=== PATIENT | male | born 1995 | race Hispanic/Latino ===

== ENCOUNTER 2019-02-02 13:24 | Emergency (ER) | payer OTHER, SELFPAY ==
[2019-02-02] MEDS ORDERED: HYDROCODONE/APAP 10/325 TAB ONE (13:48)
[2019-02-02] MEDS ORDERED: KETOROLAC 30 MG/ML INJ ONE (13:48)
--- NOTE | 2019-02-02 13:59 | EDPHYS ---
Physician Documentation [facility] Name: Joss Shearer Jr Age: 23 yrs Sex: Male : 1995 Arrival Date: 02/02/2019 Time: 13:27 Bed 14 Private MD: ED Physician Derek Appiah HPI: 02/02 14:04 This 23 yrs old Male presents to ER via Ambulatory with complaints of Back kb Pain. 14:04 The patient presents with pain that is acute, with no known mechanism of injury. The kb symptoms are located in the right low back. Onset: The symptoms/episode began/occurred 2 week(s) ago. The pain radiates to the right leg. Associated signs and symptoms: The patient has no apparent associated signs or symptoms. The problem was sustained without known cause. Modifying factors: The patient symptoms are alleviated by nothing, the patient symptoms are aggravated by nothing. Severity of symptoms: At their worst the symptoms were moderate, in the emergency department the symptoms are unchanged. The patient has not experienced similar symptoms in the past. The patient has not recently seen a physician. Historical: - Allergies: 13:32 No Known Drug Allergies; hb - Home Meds: 13:32 None [Active]; hb - PMHx: 13:32 Diabetes - NIDDM; hb - PSHx: 13:32 lump in chest removed; left knee repair; right hand repair; hb - Immunization history:: Adult Immunizations up to date. - Social history:: Smoking status: Patient/guardian denies using tobacco. - Ebola Screening: : No symptoms or risks identified at this time. ROS: 14:03 Constitutional: Negative for fever, chills, and weight loss, Neck: Negative for injury, kb pain, and swelling, Cardiovascular: Negative for chest pain, palpitations, and edema, Respiratory: Negative for shortness of breath, cough, wheezing, and pleuritic chest pain, Abdomen/GI: Negative for abdominal pain, nausea, vomiting, diarrhea, and constipation, : Negative for injury, bleeding, discharge, and swelling, MS/Extremity: Negative for injury and deformity, Skin: Negative for injury, rash, and discoloration, Neuro: Negative for headache, weakness, numbness, tingling, and seizure. 14:03 Back: Positive for pain at rest, pain with movement, radiated pain, of the right low back. Exam: 14:02 Constitutional: This is a well developed, well nourished patient who is awake, alert, kb and in no acute distress. Head/Face: Normocephalic, atraumatic. Neck: Trachea midline, no thyromegaly or masses palpated, and no cervical lymphadenopathy. Supple, full range of motion without nuchal rigidity, or vertebral point tenderness. No Meningismus. Chest/axilla: Normal chest wall appearance and motion. Nontender with no deformity. No lesions are appreciated. Cardiovascular: Regular rate and rhythm with a normal S1 and S2. No gallops, murmurs, or rubs. Normal PMI, no JVD. No pulse deficits. Respiratory: Lungs have equal breath sounds bilaterally, clear to auscultation and percussion. No rales, rhonchi or wheezes noted. No increased work of breathing, no retractions or nasal flaring. Abdomen/GI: Soft, non-tender, with normal bowel sounds. No distension or tympany. No guarding or rebound. No evidence of tenderness throughout. Back: No spinal tenderness. No costovertebral tenderness. Full range of motion. Skin: Warm, dry with normal turgor. Normal color with no rashes, no lesions, and no evidence of cellulitis. MS/ Extremity: Pulses equal, no cyanosis. Neurovascular intact. Full, normal range of motion. Neuro: Awake and alert, GCS 15, oriented to person, place, time, and situation. Cranial nerves II-XII grossly intact. Motor strength 5/5 in all extremities. Sensory grossly intact. Cerebellar exam normal. Normal gait. Vital Signs: 13:30 BP 178 / 99; Pulse 100; Resp 20; Temp 97.5; Pulse Ox 100% on R/A; Weight 235.87 kg; hb Height 6 ft. 7 in. (200.66 cm); Pain 7/10; 14:10 Weight 246.07 kg (M); hb 14:10 Body Mass Index 61.11 (246.07 kg, 200.66 cm) hb MDM: 13:33 Patient medically screened. kb 14:02 Data reviewed: vital signs, nurses notes. Data interpreted: Pulse oximetry: on room air kb is 100 %. Interpretation: normal. Counseling: I had a detailed discussion with the patient and/or guardian regarding: the historical points, exam findings, and any diagnostic results supporting the discharge/admit diagnosis, the need for outpatient follow up, a family practitioner, to return to the emergency department if symptoms worsen or persist or if there are any questions or concerns that arise at home. Administered Medications: 14:03 Drug: TORadol 30 mg Route: IM; Site: left gluteus; 14:11 Follow up: Response: No adverse reaction 14:04 Drug: [place] 10 mg-325 mg 1 tabs Route: PO; 14:11 Follow up: Response: No adverse reaction; Pain is decreased Disposition: 14:41 Co-signature as Attending Physician, Derek Appiah MD. rn Disposition: 02/02/19 13:58 Discharged to Home. Impression: Radiculopathy. - Condition is Stable. - Discharge Instructions: Radicular Pain. - Prescriptions for Skelaxin 800 mg Oral Tablet - take 1 tablet by ORAL route every 8 hours As needed; 30 tablet. Diclofenac Sodium 75 mg Oral Tablet, Delayed Release (E.C.) - take 1 tablet by ORAL route 2 times per day As needed; 30 tablet. - Medication Reconciliation Form, Thank You Letter, Antibiotic Education, Prescription Opioid Use form. - Follow up: Emergency Department; When: As needed; Reason: Worsening of condition. Follow up: Private Physician; When: 2 - 3 days; Reason: Recheck today's complaints, Continuance of care, Re-evaluation by your physician. Signatures: Vannesa Moore, COMPOUNDING PHARMACY TECHNICIAN-C COMPOUNDING PHARMACY TECHNICIAN-Ckb Derek Appiah MD MD rn Baxter, Heather, RN RN hb Habalo, Winsy Corrections: (The following items were deleted from the chart) 13:59 13:58 02/02/2019 13:58 Discharged to Home. Impression: Radiculopathy, thoracic region. kb Condition is Stable. Forms are Medication Reconciliation Form, Thank You Letter, Antibiotic Education, Prescription Opioid Use. Follow up: Emergency Department; When: As needed; Reason: Worsening of condition. Follow up: Private Physician; When: 2 - 3 days; Reason: Recheck today's complaints, Continuance of care, Re-evaluation by your physician. kb 14:11 13:59 02/02/2019 13:58 Discharged to Home. Impression: Radiculopathy. Condition is wh Stable. Discharge Instructions: Radicular Pain. Prescriptions for Skelaxin 800 mg Oral Tablet - take 1 tablet by ORAL route every 8 hours As needed; 30 tablet, Diclofenac Sodium 75 mg Oral Tablet, Delayed Release (E.C.) - take 1 tablet by ORAL route 2 times per day As needed; 30 tablet. and Forms are Medication Reconciliation Form, Thank You Letter, Antibiotic Education, Prescription Opioid Use. Follow up: Emergency Department; When: As needed; Reason: Worsening of condition. Follow up: Private Physician; When: 2 - 3 days; Reason: Recheck today's complaints, Continuance of care, Re-evaluation by your physician. kb
--- NOTE | 2019-02-02 13:59 | ER ---
Nurse's Notes [facility] Name: Joss Shearer Jr Age: 23 yrs Sex: Male : 1995 Arrival Date: 02/02/2019 Time: 13:27 Bed 14 Private MD: Diagnosis: Radiculopathy Presentation: 02/02 13:29 Presenting complaint: Right mid back pain that radiates to right buttock and leg x 2 hb weeks. Denies injury. Transition of care: patient was not received from another setting of care. Onset of symptoms was January 2019. Risk Assessment: Do you want to hurt yourself or someone else? Patient reports no desire to harm self or others. Initial Sepsis Screen: Does the patient meet any 2 criteria? No. Patient's initial sepsis screen is negative. Does the patient have a suspected source of infection? No. Patient's initial sepsis screen is negative. Care prior to arrival: None. 13:29 Method Of Arrival: Ambulatory hb 13:29 Acuity: LEE 4 hb Triage Assessment: 14:10 General: Behavior is calm, cooperative. Musculoskeletal: Circulation, motion, and wh sensation intact. Historical: - Allergies: 13:32 No Known Drug Allergies; hb - Home Meds: 13:32 None [Active]; hb - PMHx: 13:32 Diabetes - NIDDM; hb - PSHx: 13:32 lump in chest removed; left knee repair; right hand repair; hb - Immunization history:: Adult Immunizations up to date. - Social history:: Smoking status: Patient/guardian denies using tobacco. - Ebola Screening: : No symptoms or risks identified at this time. Screenin:42 Abuse screen: Denies threats or abuse. Denies injuries from another. Nutritional wh screening: No deficits noted. Tuberculosis screening: No symptoms or risk factors identified. Fall Risk None identified. Assessment: 13:50 General: Appears in no apparent distress. Pain: Complains of pain in right low back wh Pain radiates to buttocks Pain currently is 6 out of 10 on a pain scale. Quality of pain is described as aching, Pain began 2 weeks. Neuro: Level of Consciousness is awake, alert, obeys commands, Oriented to person, place, time, situation, Appropriate for age. Cardiovascular: Capillary refill < 3 seconds. Respiratory: Airway is patent Respiratory effort is even, unlabored, Respiratory pattern is regular, symmetrical. GI: Abdomen is round non-distended. : No signs and/or symptoms were reported regarding the genitourinary system. EENT: No signs and/or symptoms were reported regarding the EENT system. Derm: Skin is intact, is healthy with good turgor, Skin is pink, warm \T\ dry. normal. Musculoskeletal: Circulation, motion, and sensation intact. Vital Signs: 13:30 BP 178 / 99; Pulse 100; Resp 20; Temp 97.5; Pulse Ox 100% on R/A; Weight 235.87 kg; hb Height 6 ft. 7 in. (200.66 cm); Pain 7/10; 14:10 Weight 246.07 kg (M); hb 14:10 Body Mass Index 61.11 (246.07 kg, 200.66 cm) hb ED Course: 13:27 Patient arrived in ED. mr 13:30 Triage completed. hb 13:31 Arm band placed on. hb 13:33 [facility] F[facility]C [facility] kb 13:33 Derek Appiah MD is Attending Physician. kb 13:42 Sunny Shaw is Primary Nurse. 13:43 Patient has correct armband on for positive identification. Bed in low position. Call light in reach. Side rails up X 1. Pulse ox on. NIBP on. 14:10 No provider procedures requiring assistance completed. Patient did not have IV access wh during this emergency room visit. Administered Medications: 14:03 Drug: TORadol 30 mg Route: IM; Site: left gluteus; 14:11 Follow up: Response: No adverse reaction 14:04 Drug: [place] 10 mg-325 mg 1 tabs Route: PO; 14:11 Follow up: Response: No adverse reaction; Pain is decreased Outcome: 13:58 Discharge ordered by . kb 14:10 Discharged to home ambulatory, with family. 14:10 Condition: good 14:10 Discharge instructions given to patient, family, Instructed on discharge instructions, follow up and referral plans. medication usage, POC Radicular Pain Demonstrated understanding of instructions, follow-up care, medications, POC Prescriptions given X 2. 14:11 Patient left the ED. Signatures: Vannesa Moore FNP-C FNP-Ckb Rivera, Mary mr PaulNiyah, RN RN deborah Shaw, Sunny
[2019-02-02 14:19] VITALS: BP 178/99; TEMP 97.5; O2SAT 100
== END 2019-02-02 14:11 | disposition home or self-care (01) ==
LOC: ER 13:24
DX: M54.10 Radiculopathy, site unspecified (principal); E11.9 Type 2 diabetes mellitus without complications
CPT/HCPCS: 96372; 99283

== ENCOUNTER 2021-09-05 20:37 | Emergency (ER) | payer SELFPAY ==
--- OUTSIDE RECORDS SUMMARY | 2021-09-05 20:38 | XMS REPORT | Continuity of Care Document ---
:1995 Author Organization [facility] t Address [address] [place] [address] Care Team Providers Name Role Phone SAV Primary Care Physician Unavailable Marcelo Attending Clinician Unavailable SOY Attending Clinician Unavailable SOY Admitting Clinician Unavailable Payers Payer Name Policy Type Policy Number Effective Date Expiration Date S ource 26 C NONE Problems This patient has no known problems. Allergies, Adverse Reactions, Alerts Allergy Allergy Status Severity Reaction(s) Onset Inactive Treating Comm ents Source Name Type Date Date Clinician No known Miscella Active U Not 2020-05 [facility] Spec[facility] 05-30 lle Allergie Allergy 17:22: [facility] 16 l No known Miscella Active U Not 2020-05 [facility] 05-30 [facility] Allergie Allergy 17:22: [facility] 16 l No Known NA Active 2020-05 [facility] 05-30 lle s 17:21: [facility] 48 l No Known NA Active 2020-05 [facility] 05-30 lle s 17:21: [facility] 44 l No Known NA Active 2020-05 [place] [facility]ie 05-30 lle s 16:45: [facility] 59 l Social History Smoking Status Start Date Stop Date Source Never smoker [facility] ([facility]/[place]) Medications This patient has no known medications. Procedures This patient has no known procedures. Encounters Start End Encounter Admission Attending Care Care Encounter Source Date/Time Date/Time Type Type Clinicians Facility Department ID 2021-06-28 Outpatient Marcelo, [facility] [id number] Health 08:06:03 Ruel DO 0225 [facility] 2021-05-29 [facility] [id number] Health 13:57:58 Ruel DO 1007 [facility] 2021-05-29 [facility] Health 13:23:26 Ruel DO 0708 [facility] 2021-05-29 [facility] Health 13:15:21 Ruel DO 0616 [facility] 2021-05-29 [facility] Health 13:12:24 Ruel DO 0609 [facility] 2021-05-29 [facility] Amrc[facility] Health 13:04:18 Ruel DO 0517 [facility] 2021-06-28 2021-06-28 [facility] [id number] Health 00:00:00 00:00:00 [facility] 2021-04-19 2021-04-19 [facility] [id number] Health 00:00:00 00:00:00 [facility] 2021-03-30 2021-03-31 Emergency [facility] HVo[facility]S [id number] 22:44:00 01:07:00 Department Patient Visit 2021-03-30 2021-03-30 Emergency 1 [place]Y [place] [id number] [place] 16:44:00 19:07:00 [facility] [address] [facility] l 2021-03-30 2021-03-30 PROC&[facility] [id number] [facility] 15:44:[facility] 15:49:00 NOT JOSE R LOCKETT L ukes - CARRIED N, [address] [place], ([place] [address] 2021-03-30 2021-03-30 Inpatient [facility] [id number] [facility] [address] 00:00:00 00:00:00 [facility] R [facility] [id number], [id number] [place]PASS, ([place] [address] 2021-03-30 2021-03-30 Inpatient MMC M[facility] [id number] [facility] 00:00[facility]00 00:00:00 [facility] [id number] [facility] N, [id number] [place], ([place] [address] 2021-03-30 2021-03-30 Inpatient MMC [facility] [id number] 00:00[facility]00 00:00:00 [facility] LOCKETT [id number] - N, [id number] [place], ([place] [address] 2021-03-30 2021-03-30 Inpatient [facility] [id number] 00:00:00 00:00:00 [facility] [id number] b [facility] N, [id number] [place]PASS, ([place]F/[place] [address] 2021-02-19 2021-02-19 Outpatient [facility] [id number] Health 00:00:00 00:00:00 [facility] 2021-02-08 2021-02-08 Outpatient [facility] [id number] Health 00:00:00 00:00:00 [facility] 2020-11-14 2020-11-14 Outpatient [facility] [id number] Health 00:00:00 00:00:00 [facility] 2020-11-09 2020-11-09 Outpatient [facility] [id number] Health 00:00:00 00:00:00 [facility] 2020-10-18 2020-10-18 Outpatient [facility] [id number] Health 00:00:00 00:00:00 [facility] 2020-09-25 2020-09-25 Outpatient [facility] [id number] [facility] 00:00:00 00:00:00 [facility] 2020-09-17 2020-09-17 Outpatient [facility] [id number] [facility] 00:00:00 00:00:00 [facility] Results This patient has no known results.
[2021-09-05] MEDS ORDERED: HYDROCODONE/APAP 7.5/325 MG TAB ONE (21:19)
[2021-09-05] MEDS ORDERED: IBUPROFEN 400 MG TAB ONE (21:20)
[2021-09-05] MEDS ORDERED: TETANUS & DIPHTHERIA TOX,ADULT 0.5 ML VIAL ONE (21:20)
--- NOTE | 2021-09-05 21:51 | RAD REPORT ---
EXAM DESCRIPTION: RAD - Hand Left 3 View - 09/05/2021 9:46 pm CLINICAL HISTORY: Left Thumb pain COMPARISON: No comparisons FINDINGS/IMPRESSION: No acute fracture. No malalignment. No significant focal degenerative changes.
--- NOTE | 2021-09-05 22:27 | EDPHYS ---
Physician Documentation [facility] Name: Joss Shearer Jr Age: 26 yrs Sex: Male : 1995 Arrival Date: 09/05/2021 Time: 20:40 Bed 9 Private MD: ED Physician Braydon Benjamin HPI: 09/05 21:00 This 26 yrs old Male presents to ER via Ambulatory with complaints of Thumb cp Injury. 21:00 The patient or guardian reports injury. The complaints affect the left thumb. Context: cp resulted from being struck with hammer while working on vehicle yesterday. 21:00 Associated signs and symptoms: Pertinent positives: decreased sensation distally, cp laceration. Historical: - Allergies: 20:58 No Known Allergies; lp1 - Home Meds: 20:58 Metformin Oral [Active]; BP medication [Active]; lp1 - PMHx: 20:58 Diabetes - NIDDM; Hypertensive disorder; lp1 - PSHx: 20:58 Knee surgery; lp1 - Immunization history:: Adult Immunizations up to date, Last tetanus immunization: unknown. - Social history:: Smoking status: Patient denies any tobacco usage or history of. ROS: 21:05 Constitutional: Negative for chills, fever, poor PO intake. cp 21:05 Cardiovascular: Negative for chest pain. cp 21:05 Respiratory: Negative for cough, shortness of breath, wheezing. 21:05 MS/extremity: Positive for injury or acute deformity, laceration, pain, paresthesias, swelling, tenderness, of the left thumb. 21:05 All other systems are negative. Exam: 21:30 Constitutional: The patient appears in no acute distress, alert, awake, non-toxic, well cp developed, well nourished, obese. 21:30 Musculoskeletal/extremity: Extremities: grossly normal except: noted in the left thumb: cp pain, swelling, tenderness, mild erythema, superficial laceration noted rivas side distal phalanx left thumb, ROM: limited passive range of motion due to pain, in the left thumb, Perfusion: the extremity is normally perfused throughout, the distal phalanx left thumb decreased sensation. Vital Signs: 20:56 BP 159 / 79; Pulse 95; Resp 18; Temp 98.8(TE); Pulse Ox 98% on R/A; Weight 217.72 kg lp1 (R); Height 6 ft. 6 in. (198.12 cm); Pain 6/10; 20:56 Body Mass Index 55.47 (217.72 kg, 198.12 cm) lp1 Procedures: 22:35 Splinting: Splint applied to left thumb using thumb spica type. applied by tech. cp Examined by me, post splint application: neurovascular intact, Patient tolerated well. MDM: 20:54 Patient medically screened. cp 21:00 Differential diagnosis: open fracture, closed fracture, contusion, cellulitis. cp 22:14 Data reviewed: vital signs, nurses notes, radiologic studies, plain films. cp 22:25 Counseling: I had a detailed discussion with the patient and/or guardian regarding: the cp historical points, exam findings, and any diagnostic results supporting the discharge/admit diagnosis, radiology results, to return to the emergency department if symptoms worsen or persist or if there are any questions or concerns that arise at home. 22:25 Response to treatment: the patient's symptoms have markedly improved after treatment, cp and as a result, I will discharge patient. 09/05 20:54 Order name: Hand Left 3 View XRAY lp1 09/05 22:14 Order name: Wound Care: please clean and dress laceration; Complete Time: 22:47 cp 09/05 22:23 Order name: Thumb Spica Splint: left; Complete Time: 22:47 cp Administered Medications: 21:18 Drug: Ibuprofen 800 mg Route: PO; ab2 22:14 Follow up: Response: No adverse reaction; Pain is decreased tw5 21:19 Drug: Tetanus-Diphtheria Toxoid Adult 0.5 ml {Stud Master/Mistress: [employer]atix. Exp: ab2 07/13/2023. Lot #: [id number]. } Route: IM; Site: right deltoid; 22:14 Follow up: Response: No adverse reaction tw5 21:19 Drug: Hydrocodone-Acetaminophen (7.5 mg-325 mg) 1 tabs Route: PO; ab2 22:14 Follow up: Response: No adverse reaction; Pain is decreased; RASS: Alert and Calm (0) tw5 Disposition: 09/06 00:14 Co-signature as Attending Physician, Braydon Benjamin MD I agree with the assessment and kdr plan of care. Disposition Summary: 09/05/21 22:26 Discharge Ordered Location: Home cp Problem: new cp Symptoms: have improved cp Condition: Stable cp Diagnosis - Crushing injury of left thumb, initial encounter cp - Laceration without foreign body of left thumb without damage to nail, initial cp encounter Followup: cp - With: Willis Yoo MD - When: 2 - 3 days - Reason: Worsening of condition Discharge Instructions: - Discharge Summary Sheet cp - Nonsutured Laceration Care cp - Crush Injury of the Hand cp Forms: - Medication Reconciliation Form cp - Thank You Letter cp - Antibiotic Education cp - Prescription Opioid Use cp Prescriptions: - Ibuprofen 800 mg Oral Tablet - take 1 tablet by ORAL route every 8 hours As needed take with food; 30 tablet; cp Refills: 0, Product Selection Permitted Signatures: Dispatcher [employer] Braydon Bradford MD MD kdr Pena, Laura RN RN lp1 Marquez Cormier PA PA Po E[place]2 Gertrude Ruiz tw5
--- NOTE | 2021-09-05 22:27 | ER ---
Nurse's Notes [facility] Name: Joss Shearer Jr Age: 26 yrs Sex: Male : 1995 Arrival Date: 09/05/2021 Time: 20:40 Bed 9 Private MD: Diagnosis: Crushing injury of left thumb, initial encounter;Laceration without foreign body of left thumb without damage to nail, initial encounter Presentation: 09/05 20:53 Acuity: LEE 4 lp1 20:56 Chief complaint: Patient states: Smashed left thumb with hammer yesterday, small lp1 abrasion to left thumb with swelling. Coronavirus screen: At this time, the client does not indicate any symptoms associated with coronavirus-19. Ebola Screen: No symptoms or risks identified at this time. Initial Sepsis Screen: Does the patient meet any 2 criteria? No. Patient's initial sepsis screen is negative. Does the patient have a suspected source of infection? No. Patient's initial sepsis screen is negative. Risk Assessment: Do you want to hurt yourself or someone else? Patient reports no desire to harm self or others. Onset of symptoms was September 05, 2021. 20:56 Method Of Arrival: Ambulatory lp1 Triage Assessment: 21:01 Injury Description: Crush injury sustained to left thumb is smashed left thumb using lp1 hammer, small abrasion to left thumb was sustained 1 day ago. Historical: - Allergies: 20:58 No Known Allergies; lp1 - Home Meds: 20:58 Metformin Oral [Active]; BP medication [Active]; lp1 - PMHx: 20:58 Diabetes - NIDDM; Hypertensive disorder; lp1 - PSHx: 20:58 Knee surgery; lp1 - Immunization history:: Adult Immunizations up to date, Last tetanus immunization: unknown. - Social history:: Smoking status: Patient denies any tobacco usage or history of. Screenin:01 Abuse screen: Denies threats or abuse. Denies injuries from another. Nutritional lp1 screening: No deficits noted. Tuberculosis screening: No symptoms or risk factors identified. Fall Risk None identified. Assessment: 21:00 General: Appears in no apparent distress. Behavior is appropriate for age. Pain: lp1 Complains of pain in left thumb Pain currently is 6 out of 10 on a pain scale. Quality of pain is described as aching. Neuro: Level of Consciousness is awake, alert, obeys commands. Cardiovascular: Patient's skin is warm and dry. Respiratory: Respiratory effort is even, unlabored. GI: Abdomen is obese. : No signs and/or symptoms were reported regarding the genitourinary system. EENT: No signs and/or symptoms were reported regarding the EENT system. Derm: Skin is pink, warm \\T\\ dry. Bruising that is slight purple in color to left thumb. Musculoskeletal: Circulation, motion, and sensation intact. Swelling present in left thumb. 21:22 Reassessment: Patient appears in no apparent distress at this time. No changes from ab2 previously documented assessment. Pt sitting in chair comfortably, friend at bedside. Denies any needs at this time. 22:13 General: Reports "I happened yesterday, but I just wanted to come in and get a tetanus tw5 shot.". Pain: Complains of pain in palmar aspect of distal phalanx of left thumb and palmar aspect of proximal phalanx of left thumb Pain currently is 4 out of 10 on a pain scale. Vital Signs: 20:56 BP 159 / 79; Pulse 95; Resp 18; Temp 98.8(TE); Pulse Ox 98% on R/A; Weight 217.72 kg lp1 (R); Height 6 ft. 6 in. (198.12 cm); Pain 6/10; 20:56 Body Mass Index 55.47 (217.72 kg, 198.12 cm) lp1 ED Course: 20:40 Patient arrived in ED. bp1 20:50 Marquez Cormier PA is PHCP. cp 20:51 Braydon Benjamin MD is Attending Physician. cp 20:53 Triage completed. lp1 20:57 Arm band placed on. lp1 21:01 Patient has correct armband on for positive identification. lp1 21:02 Patient did not have IV access during this emergency room visit. lp1 21:13 Po Manzanares is Primary Nurse. ab2 21:23 No provider procedures requiring assistance completed. ab2 21:48 Hand Left 3 View XRAY In Process Unspecified. EDMS 22:07 Primary Nurse role handed off by Po Manzanares tw5 22:07 Gertrude Ruiz is Primary Nurse. tw5 22:25 Willis Yoo MD is Referral Physician. cp 22:46 Orthoglass splint:. 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 Exp: ab2 07/13/2023. Lot #: [id number]. } Route: IM; Site: right deltoid; 22:14 Follow up: Response: No adverse reaction tw5 21:19 Drug: Hydrocodone-Acetaminophen (7.5 mg-325 mg) 1 tabs Route: PO; ab2 22:14 Follow up: Response: No adverse reaction; Pain is decreased; RASS: Alert and Calm (0) tw Outcome: 22:26 Discharge ordered by MD. cp 22:39 Discharged to home tw5 22:39 Condition: stable 22:39 Discharge instructions given to patient, Instructed on discharge instructions, follow up and referral plans. Demonstrated understanding of instructions, follow-up care, medications, splint care, Prescriptions given X 1. 22:47 Patient left the ED. tw5 Signatures: Dispatcher [employer] EDMS Riddhi Shearer RN RN lp1 Marquez Cormier PA PA cp Sheryl Cesar Tiffany tw5 Po Manzanares ab2
[2021-09-06 00:30] VITALS: BP 159/79; TEMP 98.8; O2SAT 98
== END 2021-09-05 22:47 | disposition home or self-care (01) ==
LOC: ER 20:37
DX: S61.012A Laceration without foreign body of left thumb without damage to nail, initial encounter (principal); W22.8XXA Striking against or struck by other objects, initial encounter; Z23 Encounter for immunization; E11.9 Type 2 diabetes mellitus without complications; I10 Essential (primary) hypertension
CPT/HCPCS: 90471; 90714; 99284